=== PATIENT | female | born 1975 | race Caucasian/White ===

== ENCOUNTER 2022-10-13 08:02 | Outpatient (CLI) | payer OTHER, SELFPAY ==
[2022-10-13 08:35] VITALS: BP 118/78; PULSE 80; RESP 16; TEMP 36.3; O2SAT 100; BMI 28.8
[2022-10-13 09:20] VITALS: BP 108/87; PULSE 74; RESP 16; TEMP 36.3
[2022-10-13 10:20] VITALS: BP 127/77; PULSE 70; RESP 16; TEMP 36.1; O2SAT 100
[2022-10-13 11:06] VITALS: BP 120/73; PULSE 78; RESP 16; TEMP 36.6; O2SAT 100
[2022-10-13] MEDS: 0.9% NaCl Peripheral Flush Adult/Peds IV ×2 (11:07→11:08)
== END 2022-10-13 23:59 | disposition home or self-care (01) ==
PROVIDERS: PCP Nurse Practitioner Family; Referring Provider Internal Medicine Hematology & Oncology; Visit Provider Internal Medicine Hematology & Oncology
DX: D46.9 Myelodysplastic syndrome, unspecified (principal)
CPT/HCPCS: 36430; 86644; 86850; 86900; 86901; 86920; 86922; J7040; P9040; A4216

== ENCOUNTER → 2022-10-23 | Outpatient (CLI) | payer OTHER, SELFPAY ==
[2022-10-23 11:49] VITALS: BP 107/76; PULSE 84; RESP 16; TEMP 36.6; O2SAT 100; BMI 29.2
[2022-10-23 13:44] VITALS: BP 125/83; PULSE 88; RESP 16; TEMP 36.7; O2SAT 99
[2022-10-23 14:41] VITALS: BP 112/50; PULSE 84; RESP 16; TEMP 36.5
[2022-10-23] MEDS: 0.9% NaCl VAD Flush IV (15:31)
== END | disposition home or self-care (01) ==
LOC: MEDOUTP 11:34
PROVIDERS: PCP Nurse Practitioner Family; Referring Provider Internal Medicine Hematology & Oncology; Visit Provider Internal Medicine Hematology & Oncology
DX: D61.810 Antineoplastic chemotherapy induced pancytopenia (principal)
CPT/HCPCS: 36430; 86644; 86850; 86900; 86901; 86920; 86922; J7040; P9040; A4216

== ENCOUNTER → 2022-11-13 | Outpatient (CLI) | payer OTHER, SELFPAY ==
[2022-11-13] VITALS (9 sets, daily range): BP systolic 105–120; BP diastolic 59–77; PULSE 64–91; RESP 16–18; TEMP 36.2–36.9; O2SAT 98–100; BMI 29.2
[2022-11-13] MEDS: 0.9% NaCl Peripheral Flush Adult/Peds IV ×2 (08:15→08:28)
== END | disposition home or self-care (01) ==
LOC: MEDOUTP 08:00
PROVIDERS: PCP Nurse Practitioner Family; Referring Provider Internal Medicine Hematology & Oncology; Visit Provider Internal Medicine Hematology & Oncology
DX: D61.810 Antineoplastic chemotherapy induced pancytopenia (principal); T45.1X5A Adverse effect of antineoplastic and immunosuppressive drugs, initial encounter
CPT/HCPCS: 36430; 86850; 86900; 86901; 86920; 86922; 86965; J7040; P9016; P9035; A4216

== ENCOUNTER → 2022-12-17 | Outpatient (CLI) | payer OTHER, SELFPAY | END | disposition home or self-care (01) | LOC: LABSPEC 13:19 | PROVIDERS: PCP Nurse Practitioner Family; Referring Provider Internal Medicine Hematology & Oncology; Visit Provider Internal Medicine Hematology & Oncology | DX: D61.810 Antineoplastic chemotherapy induced pancytopenia (principal); T45.1X5A Adverse effect of antineoplastic and immunosuppressive drugs, initial encounter | CPT/HCPCS: 86850; 86900; 86901; 86920; 86922 ==

== ENCOUNTER → 2022-12-18 | Outpatient (CLI) | payer OTHER, SELFPAY ==
[2022-12-18] MEDS: 0.9 % NaCl (Sterile) Posiflush 10 mL IV (11:17)
[2022-12-18 11:26] VITALS: BP 117/70; PULSE 81; RESP 16; TEMP 36.6; O2SAT 99; BMI 29.2
[2022-12-18 11:54] VITALS: BP 99/54; PULSE 78; RESP 16; TEMP 36.6; O2SAT 100
[2022-12-18 12:54] VITALS: BP 101/59; PULSE 72; RESP 16; TEMP 36.7; O2SAT 100
[2022-12-18 13:54] VITALS: BP 109/61; PULSE 75; RESP 16; TEMP 36.3; O2SAT 100
[2022-12-18] MEDS: 0.9% NaCl VAD Flush IV ×2 (14:00→14:05)
== END | disposition home or self-care (01) ==
LOC: MEDOUTP 11:01
PROVIDERS: PCP Nurse Practitioner Family; Referring Provider Internal Medicine Hematology & Oncology; Visit Provider Internal Medicine Hematology & Oncology
DX: D61.810 Antineoplastic chemotherapy induced pancytopenia (principal); T45.1X5A Adverse effect of antineoplastic and immunosuppressive drugs, initial encounter
CPT/HCPCS: 36430; 86850; 86900; 86901; 86920; 86922; J7040; P9040; A4216

== ENCOUNTER 2023-01-01 09:56 | Outpatient (CLI) | payer OTHER, SELFPAY ==
[2023-01-01 10:19] VITALS: BP 113/71; PULSE 64; RESP 16; TEMP 36.1; O2SAT 94
[2023-01-01] MEDS: 0.9% NaCl VAD Flush IV ×2 (10:23→13:07)
[2023-01-01 10:45] VITALS: BP 112/71; PULSE 58; RESP 16; TEMP 36.2; O2SAT 98
[2023-01-01 11:49] VITALS: BP 125/73; PULSE 73; RESP 16; TEMP 36; O2SAT 99
[2023-01-01 13:05] VITALS: BP 120/77; PULSE 75; RESP 16; TEMP 36.2; O2SAT 97
== END 2023-01-01 09:57 | disposition home or self-care (01) ==
LOC: MEDOUTP 09:56
PROVIDERS: PCP Nurse Practitioner Family; Referring Provider Internal Medicine Hematology & Oncology; Visit Provider Internal Medicine Hematology & Oncology
DX: D61.810 Antineoplastic chemotherapy induced pancytopenia (principal); T45.1X5A Adverse effect of antineoplastic and immunosuppressive drugs, initial encounter
CPT/HCPCS: 36430; 86644; 86850; 86900; 86901; 86920; J7040; P9040; A4216

== ENCOUNTER → 2023-01-14 | Outpatient (CLI) | payer OTHER, SELFPAY | END | disposition home or self-care (01) | LOC: LABSPEC 12:24 | PROVIDERS: PCP Nurse Practitioner Family; Referring Provider Internal Medicine Hematology & Oncology; Visit Provider Internal Medicine Hematology & Oncology | DX: D61.810 Antineoplastic chemotherapy induced pancytopenia (principal); T45.1X5A Adverse effect of antineoplastic and immunosuppressive drugs, initial encounter | CPT/HCPCS: 86850; 86900; 86901; 86920; 86922 ==

== ENCOUNTER 2023-01-15 11:03 | Outpatient (CLI) | payer OTHER, SELFPAY ==
[2023-01-15 11:15] VITALS: BP 123/85; PULSE 82; RESP 16; TEMP 35.9; O2SAT 100; BMI 30.9
[2023-01-15] MEDS: 0.9 % NaCl (Sterile) Posiflush 10 mL IV (11:28)
[2023-01-15 12:06] VITALS: BP 136/88; PULSE 75; RESP 16; TEMP 36.4; O2SAT 100
[2023-01-15 13:06] VITALS: BP 143/71; PULSE 70; RESP 16; TEMP 36.5; O2SAT 100
[2023-01-15 14:10] VITALS: BP 123/87; PULSE 81; RESP 16; TEMP 37.1; O2SAT 100
[2023-01-15] MEDS: 0.9% NaCl VAD Flush IV (14:11)
== END 2023-01-15 11:04 | disposition home or self-care (01) ==
LOC: MEDOUTP 11:03
PROVIDERS: PCP Nurse Practitioner Family; Referring Provider Internal Medicine Hematology & Oncology; Visit Provider Internal Medicine Hematology & Oncology
DX: D61.810 Antineoplastic chemotherapy induced pancytopenia (principal); T45.1X5A Adverse effect of antineoplastic and immunosuppressive drugs, initial encounter
CPT/HCPCS: 36430; 86644; 86850; 86900; 86901; 86920; 86922; J7040; P9040; A4216

== ENCOUNTER 2023-01-26 08:56 | Outpatient (CLI) | payer OTHER, SELFPAY ==
[2023-01-26] VITALS (8 sets, daily range): BP systolic 110–126; BP diastolic 64–74; PULSE 53–75; RESP 14–16; TEMP 36.3–36.6; O2SAT 99–100; BMI 30.9
[2023-01-26] MEDS: 0.9% NaCl VAD Flush IV ×2 (09:37→13:43)
== END 2023-01-26 08:57 | disposition home or self-care (01) ==
LOC: MEDOUTP 08:56
PROVIDERS: PCP Nurse Practitioner Family; Referring Provider Internal Medicine Hematology & Oncology; Visit Provider Internal Medicine Hematology & Oncology
DX: D61.810 Antineoplastic chemotherapy induced pancytopenia (principal); T45.1X5A Adverse effect of antineoplastic and immunosuppressive drugs, initial encounter
CPT/HCPCS: 36430; 86644; 86850; 86900; 86901; 86920; 86922; J7040; P9040; A4216

== ENCOUNTER 2023-02-05 10:53 | Outpatient (CLI) | payer OTHER, SELFPAY ==
[2023-02-05 11:12] VITALS: BP 109/74; PULSE 73; RESP 16; TEMP 36.6; O2SAT 100; BMI 30.9
[2023-02-05 11:42] VITALS: BP 112/69; PULSE 70; RESP 16; TEMP 36.9; O2SAT 100
[2023-02-05 12:04] VITALS: BP 103/68; PULSE 66; RESP 16; TEMP 37.2; O2SAT 100
[2023-02-05 12:33] VITALS: BP 112/70; PULSE 63; RESP 16; TEMP 36.6; O2SAT 100
[2023-02-05 12:52] VITALS: BP 117/69; PULSE 65; RESP 16; TEMP 36.6; O2SAT 100
== END 2023-02-05 10:54 | disposition home or self-care (01) ==
LOC: MEDOUTP 10:53
PROVIDERS: PCP Nurse Practitioner Family; Referring Provider Internal Medicine Hematology & Oncology; Visit Provider Internal Medicine Hematology & Oncology
DX: D61.810 Antineoplastic chemotherapy induced pancytopenia (principal); T45.1X5A Adverse effect of antineoplastic and immunosuppressive drugs, initial encounter
CPT/HCPCS: 36415; 36430; 86900; 86901; 86965; J7040; P9035; A4216

== ENCOUNTER 2023-02-17 09:49 | Outpatient (CLI) | payer OTHER, SELFPAY ==
[2023-02-17 09:57] VITALS: BP 134/75; PULSE 63; RESP 16; TEMP 35.9; O2SAT 100
[2023-02-17] MEDS: 0.9 % NaCl (Sterile) Posiflush 10 mL IV (10:00)
[2023-02-17 10:36] VITALS: BP 107/68; PULSE 65; RESP 16; TEMP 35.9
[2023-02-17 11:36] VITALS: BP 129/73; PULSE 65; RESP 16; TEMP 36.1; O2SAT 99
[2023-02-17] MEDS: 0.9% NaCl VAD Flush IV (12:13)
== END 2023-02-17 09:50 | disposition home or self-care (01) ==
LOC: MEDOUTP 09:49
PROVIDERS: PCP Nurse Practitioner Family; Referring Provider Internal Medicine Hematology & Oncology; Visit Provider Internal Medicine Hematology & Oncology
DX: D61.810 Antineoplastic chemotherapy induced pancytopenia (principal); T45.1X5A Adverse effect of antineoplastic and immunosuppressive drugs, initial encounter
CPT/HCPCS: 36415; 36430; 86644; 86850; 86900; 86901; 86920; 86922; J7040; P9040; A4216